=== PATIENT | male | born 1940 | race Hispanic/Latino ===

== ENCOUNTER 2016-11-18 15:48 | Emergency (ER) | payer MEDICARE, MEDICAID ==
[2016-11-18] VITALS (7 sets, daily range): BP systolic 134–232; BP diastolic 50–76; PULSE 53–56; RESP 13–21; O2SAT 93–98
[~2016-11-18] VITALS: Ht 167.6 cm; Wt 109.1 kg
[~2016-11-18 15:48] MED LIST: ASPI81TA40 PO; GLU500 PO; HCTZ25 PO; MTP50TCR PO; ZOC10 PO
--- NOTE | 2016-11-18 15:51 | ED.REPORT ---
HPI-Stroke / CVA Nov 18, 2016 ED Provider: Dr. Desir Pt is a 76 y/o male w/ a hx of medication non-compliance, HTN, diabetes, presenting to the ED via EMS due to rapidly improving waxing and waning stroke- like symptoms onset prior to arrival. Last known normal is unknown. His family says that he does not normally get off the couch and this has been going on for 1 year. Pt was in the bathroom and felt totally normal, he then had a BM, felt dizzy, and fell to the floor. He is normally able to walk around, but after the fall medics noted that he was unable to walk or help get himself into the ambulance secondary to complete left sided weakness. At time of interview, he reports left arm weakness which he describes as being tied down to the bed ( although he is not tied down) and denies left leg weakness. EMS denies facial droop, speech changes. He denies headache, CP, abdominal pain, SOB, headache, numbness. He doesn't take his medications because he feels fine whether or not he takes them. Nursing Notes Stated Complaint: POSSIBLE STROKE Nursing Notes Reviewed: Yes Allergies: Coded Allergies: No Known Allergies (Unverified Allergy, Unknown, 11/18/16) General Time Seen by Provider: 15:52 Chief Complaint Weakness Arm left Hx Obtained From: Patient, Patient Care Assistant (RN), EMS Arrived By: Ambulance Time last known well unclear Sudden in Onset?: Yes Context of Onset: Other (BM) Symptom Duration: Waxes and wanes Progression Since Onset: Waxes and wanes Severity: Current: No pain currently Severity: Maximum: No pain Risk Factors Risk Notes: TPA exclusion criteria: unknown/unclear last known well, hypertensive (systolic 200+), after CT is received also excluded due to hemorrhagic stroke )( TPA Administration/Criteria Stroke Thrombolytic Therapy : TPA Considered: Yes (contraindicated) Neurologist Contacted: Yes TPA Administered Intravenously: No, not indicated NIH Stroke Scale Level of Consciousness: Alert and responsive (0) Ask Month & Age: Both questions right (0) Open/Close Eyes/Hand Maintenance Job Titles: Performs both tasks (0) Horizontal EO Movements: None (0) Visual Cruz: No visual loss (0) Facial Palsy: Normal symmetry (0) Right Arm Motor Drift (10s): No drift 10 sec (0) Left Arm Motor Drift (10s): Drift, not touch bed (1) Right Leg Motor Drift (5s): No drift 5 sec (0) Left Leg Motor Drift (5s): No drift 5 sec (0) Limb Ataxia FNF/Heel-Reid: No ataxia (0) Sensation (Arms/Legs/Face): No sensory loss (0) Language Aphasia: No aphasia, normal (0) Dysarthria: No dysarthria, normal (0) Extinction/Inattention: No exctinct/inattent (0) NIHSS Score: 1 Time NIHSS Performed: 16:00 Date NIHSS Performed: Nov 18, 2016 Past Medical History Past Medical History Notes: PCP: Tori Jack Past Medical History Diabetes Hypertension Hyperlipidemia CAD Past Surgical History None reported Smoking History Unknown if Ever Smoker Social History Alcohol Use: Denies alcohol use Drug Use: Denies drug use Ambulatory Status Independent Review of Systems Respiratory: Denies: Shortness of breath Cardiovascular: Denies: Chest pain GI: Denies: Abdominal pain Neurologic: Reports: Abnormal movement, Focal weakness, Problem walking, Denies: Headache, Numbness, Slurred speech, Unable to speak, Vision change Complete sys rev & neg: except as marked. Physical Exam Initial Vital Signs Vital Signs (First) Date Time Temp Pulse Resp B/P Pulse Ox O2 Delivery O2 Flow Rate FiO2 11/18/16 15:52 56 14 232/76 98 Room Air 11/18/16 17:48 37 Initial VS: Reviewed, Vital signs abnormal ENT: Mucous membranes moist, Conjunctiva normal, No scleral icterus Abdomen / GI: Soft, Non-tender, No guarding, No rebound, No distention Skin: Warm, Dry, No cyanosis Psychiatric: Mood/affect normal, Behavior normal Head / Eyes: Normocephalic, PERRL, EOMI, No nystagmus Single abrasion to the left lateral eyebrow Neck: Atraumatic, Supple, Full range of motion, No midline vertebral tend Respiratory / Chest: Atraumatic, Breath sounds NL, Breath sounds = bilat, No respiratory distress, No rales, No rhonchi, No wheezing, No retractions, No stridor, No chest tenderness, No chest wall deformity, No crepitus Cardiovascular: Heart rate NL, Regular rhythm, Heart sounds NL, No gallop, No murmurs, No rubs, Cap refill not delayed Lower Ext Edema: Positive: Bilateral 2+ Chronic venous stasis changes No palpable PT or DP pulses with significant peripheral vascular disease Neurologic: Oriented X3, Speech NL, No sensory deficits, CN II - XII intact, Memory NL Needs help sitting up. Once he sits up, he lists to the left Waxing and waning left arm weakness Interpretation & Diagnostics Lab Results Interpretation Result Diagram: 11/18/16 1622 11/18/16 1622 Test 11/18/16 16:22 White Blood Count 7.3th/mm3 (3.8-10.1) Red Blood Count 4.73mil/mm3 (4.40-5.80) Hemoglobin 13.4g/dL (13.8-17.2) Hematocrit 41.5% (41.0-50.0) Mean Corpuscular Volume 87.7fL (81-100) Mean Corpuscular Hemoglobin 28.3pg (27.0-35.0) Mean Corpuscular Hemoglobin Concent 32.3% (32.0-37.0) Red Cell Distribution Width 14.5% (12.3-15.4) Platelet Count 225bil/L (150-400) Neutrophils (%) (Auto) 57.6% (40-74) Lymphocytes (%) (Auto) 30.8% (14-46) Monocytes (%) (Auto) 7.8% (4-12) Eosinophils (%) (Auto) 3.0% (0-5) Basophils (%) (Auto) 0.5% (0-3) Sodium Level 144mEq/L (134-144) Potassium Level 3.9mEq/L (3.5-5.2) Chloride Level 107mEq/L (97-108) Carbon Dioxide Level 27mmol/L (18-29) Blood Urea Nitrogen 21mg/dL (8-27) Creatinine 2.45mg/dL (0.76-1.27) Estimat Glomerular Filtration Rate 28mL/min (>59) Glucose Level 135mg/dL (60-99) Calcium Level 7.8mg/dL (8.5-10.1) Total Bilirubin 0.2mg/dL (0.0-1.2) Aspartate Amino Transf (AST/SGOT) 31U/L (0-50) Alanine Aminotransferase (ALT/SGPT) 17U/L (0-44) Alkaline Phosphatase 118U/L (25-160) Troponin T 0.078ug/L (0.0-0.011) Total Protein 6.3g/dL (6.4-8.4) Albumin 2.3g/dL (3.4-5.0) Lab Results Interpretation: No prior labs available for comparison ECG Interpretation ECG Interpretation: Sinus rhythm rate 52 Prolonged QT interval, QTc 503 Time: 16:36 Interpreted by: ED physician Normal ECG Interpretation: No acute ischemic changes CT Head Interpretation IMPRESSION: Acute intraparenchymal hemorrhage involving the right basal ganglia and thalamus Findings personally telephoned and discussed with Dr. Desir 1700 hours 11/18/16 Dictated by: Darin Elder M.D. on 11/18/2016 at 17:00 Approved by: Darin Elder M.D. on 11/18/2016 at 17:00 Study: Head CT no contrast Interpretation / Wet Read by: Interpret - Radiologist Re-Eval/Medical Decision Med Decision/Clinical Course Acute intraparenchymal hemorrhage involving the right basal ganglia and thalamus Severe hypertension requiring IV nicardipine (Goal SBP 160 range) Also with renal failure, creatine 2.5 without prior baseline available elevated trop, no STEMI on EKG, unclear if this is related to acute neurologic event or represents NSTEMI. given intracranial hemorrhage, heprin/asa/plavix all contraindicated. NO chest pain or dyspnea Source of Hx: Old records, EMS Re-Evaluation/Progress : Time of Eval: 17:13 Re-Evaluation/Progress Note: Pt rechecked. Condition unchanged. BP grossly unchanged. Informed pt of need for transfer. He understands and agrees with plan for transfer. Consultation #1: Consulted With: Neurology Call Returned at: 17:04 Note: Case discussed with [facility] neurologist Dr. Faiza Stewart. Recommends blood pressure 160/90 by use of Nicardipine drip. He will be admitted to the [facility] shaving machine operator. After CT scan discussed, she accepts the patient. Consultation #2: Consulted With: Hospitalist Call Returned at: 19:21 Parking Inspector: Will see patient, Agrees with eval, Agrees with plan Note: Discussed case with Neuro ICU shaving machine operator at [facility], Dr. Case who is the accepting physician. Updated him on completed labs and discussed case in brief. Counseled Regarding: Diagnosis, Lab results, Need for transfer Patient Discharge & Departure Impression: Primary Impression: Hemorrhagic stroke Additional Impressions: Acute left-sided weakness Renal failure Elevated troponin Hypertension Hypertension type: unspecified secondary hypertension Hypertension goal: unspecified goal Qualified Code: I15.9 - Secondary hypertension, unspecified Noncompliance with medication regimen Peripheral vascular disease Disposition: Transfer, Acute Care Facility Transfer Requested at: 17:10 Receiving Hospital: [facility], Dr. Case - neurologist Transfer Accepted: Yes Transfer Accepted at: 17:10 Transfer Reason: Higher level of care Spoke with: Specialty physician Patient Status: Stable for transfer Patient Informed: Yes Discharge Condition All VS Reviewed: Yes Condition: Stable Referrals: Tori Jack (PCP) Crit Care Except Billable Proc Time Spent: 30-74 minutes Services Performed: Patient management by me, Time spent at bedside, Reviewing test results, Reviewing imaging, Discussing patient care, Documentation in record Scribe Attestation Portions of this note were transcribed by Chilo Cook. I, Dr. Desir personally performed the history, physical exam and medical decision-making; I reviewed and confirmed the accuracy of the information in the transcribed note. Signed by Sachin Yoder, 11/18/15 1611 copies to: Tori Jack Shawna L MD Nov 18, 2016 15:51 CHILO COOK Nov 18, 2016 16:03
[2016-11-18] MEDS ORDERED: GLIP10TA10 PO (16:09)
[2016-11-18] MEDS ORDERED: LISI-567 PO (16:09)
[2016-11-18 16:38] LABS: BASOPHILS % (AUTO) 0.5 % (0-3); MONOCYTES % (AUTO) 7.8 % (4-12); Mean Corpuscular Hemoglobin 28.3 pg (27.0-35.0); Mean Corpuscular Volume 87.7 fL (81-100); NEUTROPHILS % (AUTO) 57.6 % (40-74); Platelet Count 225 bil/L (150-400)
--- NOTE | 2016-11-18 17:02 | DRSVH ---
PROCEDURE: CT BRAIN WITHOUT CONTRAST ([id number]) INDICATIONS: left hand weakness TECHNIQUE: Noncontrast 4.5 mm thick angled axial sections acquired from the foramen magnum to the vertex, with c oronal reformats. COMPARISON: None. FINDINGS: Image quality: Excellent. CSF spaces: Basal cisterns are patent. No extra-axial fluid collections. The ventricles are symmet el in size and shape. Brain: Intraparenchymal hemorrhage present within the right basal ganglia and thalamus. This measures 1.5 x 1.1 cm cross-sectionally. There is surrounding vasogenic edema. There is cerebral volume loss for age, with resultant ventricular and sulcal prominence. There are periventricular and deep white matter chronic small vessel ischemic changes. There is intracranial internal carotid artery atherosc lerosis. Skull and face: Calvarium and visualized facial bones appear intact, without suspicious lesions. Sinuses: Visualized sinuses and mastoids are clear. IMPRESSION: Acute intraparenchymal hemorrhage involving the right basal ganglia and thalamus Findings personally telephoned and discussed with Dr. Desir 1700 hours 11/18/16 Dictated by: Darin Elder M.D. on 11/18/2016 at 17:00 Approved by: Darin Elder M.D. on 11/18/2016 at 17:00
[2016-11-18 17:10] LABS: TROPONIN T 0.078 ug/L (0.0-0.011)
[2016-11-18] MEDS ORDERED: NiCARdipine Inj 25 MG in Dextrose 5% 240 ML IV SCH (17:10)
== END 2016-11-18 19:18 | disposition short-term general hospital (02) ==
LOC: SED 15:48
DX: I63.9 Cerebral infarction, unspecified (principal); N19 Unspecified kidney failure; I73.9 Peripheral vascular disease, unspecified; I15.9 Secondary hypertension, unspecified; R77.8 Other specified abnormalities of plasma proteins; R29.818 Other symptoms and signs involving the nervous system; R29.701 NIHSS score 1; W18.12XA Fall from or off toilet with subsequent striking against object, initial encounter; Y93.89 Activity, other specified; Y92.012 Bathroom of single-family (private) house as the place of occurrence of the external cause; Y99.8 Other external cause status; Z91.14 Patient's other noncompliance with medication regimen; I25.10 Atherosclerotic heart disease of native coronary artery without angina pectoris; E11.9 Type 2 diabetes mellitus without complications; E78.5 Hyperlipidemia, unspecified